=== PATIENT | female | born 1965 | race Caucasian/White ===

== ENCOUNTER → 2017-05-03 | Outpatient (CLI) | payer BC, OTHER ==
--- NOTE | 2017-05-03 16:19 | WOMENS IMAGING REPORT ---
EXAM DESCRIPTION: BILAT SCREENING MAMMO W/CAD COMPLETED DATE/TIME: 05/03/2017 1:33 pm REASON FOR STUDY: SCREENING MAMMO Z12.31 ENCNTR SCREEN MAMMOGRAM FOR MALIGNANT NEOPLASM OF SHIRLEY COMPARISON: Multiple since 2008 TECHNIQUE: Standard craniocaudal and mediolateral oblique views of each breast recorded using digita l acquisition. LIMITATIONS: None. FINDINGS: RIGHT BREAST MASSES: No suspicious masses. CALCIFICATIONS: No new or suspicious calcifications. Well cysts with adjacent dystrophic calcificati ons 6 o'clock position right breast lift in 2014 ARCHITECTURAL DISTORTION: None. DEVELOPING DENSITY: None. ASYMMETRY: None noted. OTHER: Postsurgical changes from breast reduction LEFT BREAST MASSES: No suspicious masses. CALCIFICATIONS: Indeterminate calcifications left lower outer quadrant. Diagnostic mammograms compre ssion magnification views and 90 mediolateral view recommended ARCHITECTURAL DISTORTION: None. DEVELOPING DENSITY: None. ASYMMETRY: None noted. OTHER: Postsurgical changes from breast lift in 2014 Read with the assistance of CAD. .[facility] - R2 Cenova Version 1.3 .[facility] Imaging - R2 Cenova Version 1.3 .[facility] Imaging - R2 Cenova Version 2.4 .[facility] [place] Cenova Version 2.4 .[facility] - R2 Door Furring Installer Version 9.2 IMPRESSION: No mammographic evidence for malignancy right breast. Indeterminate calcifications left breast for which diagnostic mammograms are recommended BREAST DENSITY: b. There are scattered areas of fibroglandular density. BIRAD: 0 Incomplete: Needs Additional Imaging Evaluation and/or prior Mammograms for Comparison. RECOMMENDATION: RECOMMENDED FOLLOW-UP: Left breast diagnostic mammograms for calcifications The patient will be contacted for additional imaging. COMMENT: The patient has been notified of the results by letter per SA requirements. Additional no tification policies are in place for contacting patient with suspicious or incomplete findings. Quality ID #[id number]: The [employer] recommends an annual screening mammogram for women aged 40 years or over. This facility utilizes a reminder system to ensure that all patients receive reminder letters, and/or direct phone calls for appointments. This includes reminders for routine scr eening mammograms, diagnostic mammograms, or other Breast Imaging Interventions when appropriate. Th is patient will be placed in the appropriate reminder system. The [employer] (ACR) has developed recommendations for screening MRI of the breast s in certain patient populations, to be used in conjunction with mammography. Breast MRI surveillanc e may be appropriate for women with more than 20% lifetime risk of developing breast cancer as deter mined by genetic testing, significant family history of the disease, or history of mantle radiation f or Hodgkins Disease. ACR Practice Guidelines 2008. TECHNICAL DOCUMENTATION: FINDING NUMBER: (1) ASSESSMENT: (1) JOB ID: [id number] [employer]- All Rights Reserved
== END ==
LOC: WI 12:56
PROVIDERS: ATTEND Advanced Practice Midwife
DX: Z12.31 Encounter for screening mammogram for malignant neoplasm of breast (principal); R92.0 Mammographic microcalcification found on diagnostic imaging of breast
CPT/HCPCS: 77067; G0202

== ENCOUNTER → 2017-05-11 | Outpatient (CLI) | payer BC, OTHER ==
--- NOTE | 2017-05-11 10:55 | WOMENS IMAGING REPORT ---
EXAM DESCRIPTION: LEFT DIAGNOSTIC MAMMO W/CAD COMPLETED DATE/TIME: 05/11/2017 10:19 am REASON FOR STUDY: CALCIFICATIONS; R92.2 R92.0 MAMMOGRAPHIC MICROCALCIFICATION FOUND ON DX IMAGING O F COMPARISON: 05/03/2017 and 05/01/2016. TECHNIQUE: Additional images include a true lateral image and magnification lateral and CC images. LIMITATIONS: None. FINDINGS: BREAST: left MASSES: No suspicious masses. CALCIFICATIONS: Calcifications in the inferolateral breast which are irregular in size and shape. ARCHITECTURAL DISTORTION: None. DEVELOPING DENSITY: None. ASYMMETRY: None noted. OTHER: No other significant findings. IMPRESSION: Calcifications in the inferolateral breast which have suspicious pleomorphic characteris tics. BREAST DENSITY: b. There are scattered areas of fibroglandular density. BIRAD: 4 Suspicious. Biopsy should be considered. RECOMMENDATION: RECOMMENDED FOLLOW UP: Birads 4: Biopsy should be performed in the absence of clinic al contraindication. SPECIFIC INTERVENTION/IMAGING/CONSULTATION RECOMMENDED:The suspicious finding(s) amenable to stereo-t actic-guided vacuum assisted core biopsy. COMMUNICATION:The imaging findings were discussed with the patient. Her referring provider has been n otified of the findings. COMMENT: The patient has been notified of the results by letter per SA requirements. Additional no tification policies are in place for contacting patient with suspicious or incomplete findings. Quality ID #[id number]: The [employer] recommends an annual screening mammogram for women aged 40 years or over. This facility utilizes a reminder system to ensure that all patients receive reminder letters, and/or direct phone calls for appointments. This includes reminders for routine scr eening mammograms, diagnostic mammograms, or other Breast Imaging Interventions when appropriate. Th is patient will be placed in the appropriate reminder system. The [employer] (ACR) has developed recommendations for screening MRI of the breast s in certain patient populations, to be used in conjunction with mammography. Breast MRI surveillanc e may be appropriate for women with more than 20% lifetime risk of developing breast cancer as deter mined by genetic testing, significant family history of the disease, or history of mantle radiation f or Hodgkins Disease. ACR Practice Guidelines 2008. TECHNICAL DOCUMENTATION: FINDING NUMBER: (1) ASSESSMENT: (1) JOB ID: [id number] [employer]- All Rights Reserved
== END ==
LOC: WI 10:46
PROVIDERS: ATTEND Advanced Practice Midwife
DX: R92.2 Inconclusive mammogram (principal)
CPT/HCPCS: G0206-52

== ENCOUNTER → 2017-05-27 | Day surgery (SDC) | payer BC, OTHER ==
[~2017-05-27] MED LIST: LIDOCAINE 2% INJ (20 MG/ML) 20 ML MDV ONE
--- NOTE | 2017-05-27 11:22 | OPERATIVE REPORT E ---
Operative Report NAME: JENNIE KRAMER : 1965 AGE: 51Y DATE OF SURGERY: 05/27/2017 ROOM: PREOPERATIVE DIAGNOSIS: New cluster of microcalcifications outer lower aspect left breast. POSTOPERATIVE DIAGNOSIS: New cluster of microcalcifications outer lower aspect left breast. PROCEDURES: 1. Stereotactically direct incision, mammotomy, core biopsy left breast microcalcifications. 2. Deployment of clip marker. 3. Interpretation of intraoperative mammography. SURGEON: ROMARIO KUMAR M.D. ANESTHESIA: 1% lidocaine plain. COMPLICATIONS: None. ESTIMATED BLOOD LOSS: 25 mL. DRAINS: None. TISSUE REMOVED OR ALTERED: Multiple cores left breast. SUMMARY OF PROCEDURE: Patient was brought from the outpatient radiology suite to the stereotactic procedure room where the left breast was placed to compression. Using an MLO approach, the *------* microcalcifications and the lower outer aspect of the left breast were localized. Stereotactic views were obtained. The microcalcifications were in a linear cluster, and very superficial. The surface of the left breast was exposed, and prepped with Betadine. Skin anesthetized with 1% lidocaine plain. A mammotomy was made with an 11-blade, and the mammotome advanced to the appropriate depth. Pre and post fire films showed good alignment between the mammotome and the microcalcifications. Again, the mammotome was barely in the breast parenchyma, but we did feel it was safe and suitable for biopsying. We obtained approximately 12 cores in 2 separate containers. Both containers were imaged and found to bear some microcalcifications. There was a mild amount of venous oozing during the procedure. A post biopsy cavity clip was deployed and a followup mammogram showed the clip to be in the biopsy cavity. At this point, we felt the operation was complete. The introducer sheath was removed from the patient's breast and compression applied. Final mammograms pending at time of dictation of the left breast. DICTATING PHYSICIAN: ROMARIO KUMAR M.D. [id number] PHY#: [id number] ID: [id number] JOB#: [id number] ACCT: [id number] cc:ROMARIO KUMAR M.D. >
== END ==
LOC: RAD 08:30
PROVIDERS: ATTEND Surgery
PROC: 0HBU3ZX Excision of Left Breast, Percutaneous Approach, Diagnostic (ICD-10-PCS; principal; 2017-05-27)
DX: R92.1 Mammographic calcification found on diagnostic imaging of breast (principal)
CPT/HCPCS: 88305 ×2; 88342; 19081; J3490; 76098

== ENCOUNTER → 2017-09-02 | Outpatient (CLI) | payer BC, OTHER ==
--- NOTE | 2017-09-07 17:38 | WOMENS IMAGING REPORT ---
EXAM DESCRIPTION: LEFT DIAGNOSTIC MAMMO W/CAD; U/S BREAST UNILAT LIMITED COMPLETED DATE/TIME: 09/02/2017 8:24 am; 09/02/2017 9:03 am REASON FOR STUDY: LEFT BREAST CALCIFICATION; LEFT BREAST; 3 MONTH FOLLOW-UP R92.0 MAMMOGRAPHIC MICR OCALCIFICATION FOUND ON DX IMAGING OF COMPARISON: Multiple previous mammograms from 2017 including specimen radiographs and stereotactic b iopsy images TECHNIQUE: Compression magnification craniocaudal and mediolateral oblique images of the breast carl rded with digital acquisition. Left breast 90 mediolateral, MLO and CC views. Left breast ultrasound was also performed. LIMITATIONS: None. FINDINGS: BREAST: Left MASSES: No suspicious masses. CALCIFICATIONS: Calcifications of concern in the left breast lower outer quadrant identified on mammo grams 05/11/2017 underwent biopsy on 05/27/2017. On today's study, a stereotactic clip is present with adjacent multiple small calcifications in the lower outer quadrant left breast, 6 cm from the nipple . Pathology report from 05/27/2017 stated no microcalcifications were identified. Rebiopsy this lesi on is recommended. This finding was discussed with Dr. Hayden. ARCHITECTURAL DISTORTION: None. DEVELOPING DENSITY: None. ASYMMETRY: None noted. OTHER: No other significant findings. Read with the assistance of CAD. .[facility] - R2 Cenova Version 1.3 .[facility] Imaging - R2 Cenova Version 1.3 .[facility] Imaging - R2 Cenova Version 2.4 .[facility] [place] R2 Cenova Version 2.4 .[facility] - R2 Fuller Brush Worker Version 9.2 Left breast ultrasound: Because the calcifications of concern in the left breast were fairly superficial, ultrasound of the l eft lower outer quadrant was performed. At the 4 o'clock position, there is a ill-defined hypoechoic area measuring 10 mm in size with shadowing calcifications and shadowing clip. This is likely the s ite of prior stereotactic biopsy. Because the calcifications and clip are identified easily at ultra sound, ultrasound-guided core biopsy and post biopsy clip placement with follow-up two-view mammogram is recommended. This finding was discussed with Dr. Hayden IMPRESSION: Short interval follow-up mammograms post inconclusive stereotactic biopsy. Calcificatio ns of concern are still present in the left breast lower outer quadrant with adjacent stereotactic cl ip. Because this area is visible with ultrasound, and stereotactic biopsy was challenging, a re-biop sy of this area under ultrasound guidance with follow-up two-view post biopsy mammograms is recommend ed. These findings were discussed with the surgeon. BREAST DENSITY: b. There are scattered areas of fibroglandular density. BIRAD: 4 Suspicious. Biopsy should be considered. RECOMMENDATION: RECOMMENDED FOLLOW UP: Ultrasound-guided core biopsy and post biopsy clip placement with follow-up two-view mammogram left breast lower outer quadrant lesion SPECIFIC INTERVENTION/IMAGING/CONSULTATION RECOMMENDED:As above COMMUNICATION:These findings were discussed with the surgeon COMMENT: The patient has been notified of the results by letter per SA requirements. Additional no tification policies are in place for contacting patient with suspicious or incomplete findings. Quality ID #[id number]: [employer] recommends an annual screening mammogram for women aged 40 years or over. This facility utilizes a reminder system to ensure that all patients receive reminder letters, and/or direct phone calls for appointments. This includes reminders for routine scr eening mammograms, diagnostic mammograms, or other Breast Imaging Interventions when appropriate. Th is patient will be placed in the appropriate reminder system. The [employer] (ACR) has developed recommendations for screening MRI of the breast s in certain patient populations, to be used in conjunction with mammography. Breast MRI surveillanc e may be appropriate for women with more than 20% lifetime risk of developing breast cancer as deter mined by genetic testing, significant family history of the disease, or history of mantle radiation f or Hodgkins Disease. ACR Practice Guidelines 2008. TECHNICAL DOCUMENTATION: FINDING NUMBER: (1) ASSESSMENT: (1) JOB ID: [id number] [employer]- All Rights Reserved
--- NOTE | 2017-09-07 17:38 | WOMENS IMAGING REPORT ---
EXAM DESCRIPTION: LEFT DIAGNOSTIC MAMMO W/CAD; U/S BREAST UNILAT LIMITED COMPLETED DATE/TIME: 09/02/2017 8:24 am; 09/02/2017 9:03 am REASON FOR STUDY: LEFT BREAST CALCIFICATION; LEFT BREAST; 3 MONTH FOLLOW-UP R92.0 MAMMOGRAPHIC MICR OCALCIFICATION FOUND ON DX IMAGING OF COMPARISON: Multiple previous mammograms from 2017 including specimen radiographs and stereotactic b iopsy images TECHNIQUE: Compression magnification craniocaudal and mediolateral oblique images of the breast carl rded with digital acquisition. Left breast 90 mediolateral, MLO and CC views. Left breast ultrasound was also performed. LIMITATIONS: None. FINDINGS: BREAST: Left MASSES: No suspicious masses. CALCIFICATIONS: Calcifications of concern in the left breast lower outer quadrant identified on mammo grams 05/11/2017 underwent biopsy on 05/27/2017. On today's study, a stereotactic clip is present with adjacent multiple small calcifications in the lower outer quadrant left breast, 6 cm from the nipple . Pathology report from 05/27/2017 stated no microcalcifications were identified. Rebiopsy this lesi on is recommended. This finding was discussed with Dr. Hayden. ARCHITECTURAL DISTORTION: None. DEVELOPING DENSITY: None. ASYMMETRY: None noted. OTHER: No other significant findings. Read with the assistance of CAD. .[facility] - R2 Cenova Version 1.3 .[facility] Imaging - R2 Cenova Version 1.3 .[facility] Imaging - R2 Cenova Version 2.4 .[facility] [place] R2 Cenova Version 2.4 .[facility] - R2 Spring Tester Version 9.2 Left breast ultrasound: Because the calcifications of concern in the left breast were fairly superficial, ultrasound of the l eft lower outer quadrant was performed. At the 4 o'clock position, there is a ill-defined hypoechoic area measuring 10 mm in size with shadowing calcifications and shadowing clip. This is likely the s ite of prior stereotactic biopsy. Because the calcifications and clip are identified easily at ultra sound, ultrasound-guided core biopsy and post biopsy clip placement with follow-up two-view mammogram is recommended. This finding was discussed with Dr. Hayden IMPRESSION: Short interval follow-up mammograms post inconclusive stereotactic biopsy. Calcificatio ns of concern are still present in the left breast lower outer quadrant with adjacent stereotactic cl ip. Because this area is visible with ultrasound, and stereotactic biopsy was challenging, a re-biop sy of this area under ultrasound guidance with follow-up two-view post biopsy mammograms is recommend ed. These findings were discussed with the surgeon. BREAST DENSITY: b. There are scattered areas of fibroglandular density. BIRAD: 4 Suspicious. Biopsy should be considered. RECOMMENDATION: RECOMMENDED FOLLOW UP: Ultrasound-guided core biopsy and post biopsy clip placement with follow-up two-view mammogram left breast lower outer quadrant lesion SPECIFIC INTERVENTION/IMAGING/CONSULTATION RECOMMENDED:As above COMMUNICATION:These findings were discussed with the surgeon COMMENT: The patient has been notified of the results by letter per SA requirements. Additional no tification policies are in place for contacting patient with suspicious or incomplete findings. Quality ID #[id number]: The [employer] recommends an annual screening mammogram for women aged 40 years or over. This facility utilizes a reminder system to ensure that all patients receive reminder letters, and/or direct phone calls for appointments. This includes reminders for routine scr eening mammograms, diagnostic mammograms, or other Breast Imaging Interventions when appropriate. Th is patient will be placed in the appropriate reminder system. The [employer] (ACR) has developed recommendations for screening MRI of the breast s in certain patient populations, to be used in conjunction with mammography. Breast MRI surveillanc e may be appropriate for women with more than 20% lifetime risk of developing breast cancer as deter mined by genetic testing, significant family history of the disease, or history of mantle radiation f or Hodgkins Disease. ACR Practice Guidelines 2008. TECHNICAL DOCUMENTATION: FINDING NUMBER: (1) ASSESSMENT: (1) JOB ID: [id number] [employer]- All Rights Reserved
== END ==
LOC: WI 07:44
PROVIDERS: ATTEND Surgery
DX: R92.0 Mammographic microcalcification found on diagnostic imaging of breast (principal)
CPT/HCPCS: 76642

== ENCOUNTER → 2017-09-20 | Day surgery (SDC) | payer BC, OTHER ==
--- NOTE | 2017-09-28 08:40 | WOMENS IMAGING REPORT ---
EXAM DESCRIPTION: U/S BREAST BX; LEFT DIG DX MAMMO NO CHG COMPLETED DATE/TIME: 09/20/2017 11:04 am; 09/20/2017 11:00 am REASON FOR STUDY: LEFT BREAST CALCIFICATION; R92.0 LEFT S/P US BX FOR CLIP PLACEMENT R92.0 MAMMOGRA PHIC MICROCALCIFICATION FOUND ON DX IMAGING OF COMPARISON: None. TECHNIQUE: The procedure was discussed with the patient and the patient agreed to proceed. The patient was scanned and the area of interest in the 4-5 o'clock position 5.5 cm from the nipple o f the left breast was localized. This correlates with the area of concern on prior imaging studies. This area was targeted for ultrasound-guided core biopsy. After sterile skin prep and 2 mL local lidocaine 1% for skin and deep tissue anesthesia, a 14 gauge c ore biopsy needle was used to obtain several cores of tissue from the lesion. Under ultrasound declan nce, a ribbon clip was placed in the areas sampled. There were no immediate post-procedure complicat ions. MAMMOGRAM: Post-procedure two view mammogram was acquired in the digital mammogram suite. The clip wa s in the expected location. No significant hematoma. Pathology yields a diagnosis of benign fibrosis. Pathology is concordant. LIMITATIONS: None. FINDINGS: Ultrasound guided breast biopsy as described above. POST PROCEDURE MAMMOGRAMS FOR MARKER PLACEMENT: Yes IMPRESSION: ULTRASOUND-GUIDED CORE BIOPSY OF THE LEFT BREAST YIELDS A DIAGNOSIS OF BENIGN FIBROSIS. COMMENT: COMMUNICATION: The patient's provider has been notified of the findings. The provider will discuss the findings with the patient. Patient medication list reviewed: Yes- Quality ID# [id number]:Eligible professional attests to documenting i n the medical record they obtained, updated, or reviewed the patient's current medications. TECHNICAL DOCUMENTATION: JOB ID: [id number] [employer]- All Rights Reserved
== END ==
LOC: WI 09:31
PROVIDERS: ATTEND Surgery
DX: R92.0 Mammographic microcalcification found on diagnostic imaging of breast (principal); N60.32 Fibrosclerosis of left breast
CPT/HCPCS: 88342 ×2; 88305 ×2; 19083; J3490

== ENCOUNTER → 2017-12-21 | Outpatient (CLI) | payer BC, OTHER ==
--- NOTE | 2017-12-23 22:03 | WOMENS IMAGING REPORT ---
EXAM DESCRIPTION: LEFT DIAGNOSTIC MAMMO W/CAD COMPLETED DATE/TIME: 12/21/2017 8:42 am REASON FOR STUDY: MICROCALCIFICATIONS R92.0 MAMMOGRAPHIC MICROCALCIFICATION FOUND ON DX IMAGING OF COMPARISON: Multiple since 2008 TECHNIQUE: Standard craniocaudal, 90 mediolateral and mediolateral oblique images of the breast rec orded with digital acquisition. Additional left breast compression magnification views in the CC and 90 mediolateral orientations LIMITATIONS: None. FINDINGS: BREAST: Left MASSES: No suspicious masses. CALCIFICATIONS: In the lower outer quadrant, there are a group of dense breast parenchymal calcificat ions with adjacent stereotactic biopsy and ultrasound biopsy clips. Prior biopsy yielded a benign di agnosis of benign fibrosis. Patient has had post reduction surgery. These are likely dystrophic jocelyn cifications in scar tissue. ARCHITECTURAL DISTORTION: None. DEVELOPING DENSITY: None. ASYMMETRY: None noted. OTHER: No other significant findings. Read with the assistance of CAD. .[facility] - R2 Cenova Version 1.3 .[facility] Imaging - R2 Cenova Version 1.3 .[facility] - R2 Cenova Version 2.4 .[facility] [place] - R2 Cenova Version 2.4 .[facility] - R2 Customer Experience Professional Version 9.2 IMPRESSION: Probably benign calcifications left breast. Six-month follow-up left breast mammograms with right breast screening mammograms recommended in June 2018. BREAST DENSITY: c. The breasts are heterogeneously dense, which may obscure small masses. BIRAD: 3 Probably benign finding. Initial short-interval follow-up suggested. RECOMMENDATION: RECOMMENDED FOLLOW UP: Right breast screening left breast diagnostic mammograms in 2017 SPECIFIC INTERVENTION/IMAGING/CONSULTATION RECOMMENDED:No additional intervention/ imaging/consultati on needed at this time. COMMUNICATION:The negative/benign results were communicated to the patient. COMMENT: The patient has been notified of the results by letter per SA requirements. Additional no tification policies are in place for contacting patient with suspicious or incomplete findings. Quality ID #[id number]: The [employer] recommends an annual screening mammogram for women aged 40 years or over. This facility utilizes a reminder system to ensure that all patients receive reminder letters, and/or direct phone calls for appointments. This includes reminders for routine scr eening mammograms, diagnostic mammograms, or other Breast Imaging Interventions when appropriate. Th is patient will be placed in the appropriate reminder system. The [employer] (ACR) has developed recommendations for screening MRI of the breast s in certain patient populations, to be used in conjunction with mammography. Breast MRI surveillanc e may be appropriate for women with more than 20% lifetime risk of developing breast cancer as deter mined by genetic testing, significant family history of the disease, or history of mantle radiation f or Hodgkins Disease. ACR Practice Guidelines 2008. TECHNICAL DOCUMENTATION: FINDING NUMBER: (1) ASSESSMENT: (1) JOB ID: [id number] [employer] All Rights Reserved Reading location - IP/workstation name: [email or web address]
== END ==
LOC: WC 07:46
PROVIDERS: ATTEND Surgery
DX: R92.0 Mammographic microcalcification found on diagnostic imaging of breast (principal)

== ENCOUNTER → 2018-06-07 | Outpatient (CLI) | payer BC, OTHER ==
--- NOTE | 2018-06-07 10:52 | WOMENS IMAGING REPORT ---
EXAM DESCRIPTION: 3D DX MAMMO BILAT COMPLETED DATE/TIME: 06/07/2018 8:59 am REASON FOR STUDY: MICROCALCIFICATIONS R92.0 MAMMOGRAPHIC MICROCALCIFICATION FOUND ON DX IMAGING OF COMPARISON: Multiple since 2008 TECHNIQUE: Standard craniocaudal and mediolateral oblique views of each breast recorded using digita l acquisition and breast tomosynthesis. Additional left breast 90 mediolateral view, compression magnification views left breast in the mL a nd CC orientations. LIMITATIONS: None. FINDINGS: RIGHT BREAST MASSES: No suspicious masses. CALCIFICATIONS: No new or suspicious calcifications. ARCHITECTURAL DISTORTION: None. DEVELOPING DENSITY: None. ASYMMETRY: None noted. OTHER: Postsurgical changes from breast lift in 2014. LEFT BREAST MASSES: No suspicious masses. CALCIFICATIONS: No new or suspicious calcifications. Benign-appearing coarse dense calcifications le ft breast 6 o'clock position with adjacent biopsy clips. ARCHITECTURAL DISTORTION: None. DEVELOPING DENSITY: None. ASYMMETRY: None noted. OTHER: Postsurgical changes from breast left in 2014. Read with the assistance of CAD: .[facility] - R2 [employer] Version 1.3 .[facility] - R2 Cenova Version 1.3 .[facility] - R2 Cenova Version 2.4 .[facility] [place] R2 C[employer]ova Version 2.4 .[facility] - R2 [employer] Version 9.2 IMPRESSION: Benign breast parenchymal calcifications bilaterally. Postsurgical changes from bilateral breast lift in 2014 BREAST DENSITY: b. There are scattered areas of fibroglandular density. BIRAD: 2 Benign findings. RECOMMENDATION: RECOMMENDED FOLLOW UP: Please continue yearly bilateral screening tomosynthesis in O ctober 2019 SPECIFIC INTERVENTION/IMAGING/CONSULTATION RECOMMENDED:No additional intervention/ imaging/consultati on needed at this time. COMMUNICATION:The negative/benign results were communicated to the patient. COMMENT: The patient has been notified of the results by letter per SA requirements. Additional no tification policies are in place for contacting patient with suspicious or incomplete findings. Quality ID #225: The [employer] recommends an annual screening mammogram for women aged 40 years or over. This facility utilizes a reminder system to ensure that all patients receive reminder letters, and/or direct phone calls for appointments. This includes reminders for routine scr eening mammograms, diagnostic mammograms, or other Breast Imaging Interventions when appropriate. Th is patient will be placed in the appropriate reminder system. The [employer] (ACR) has developed recommendations for screening MRI of the breast s in certain patient populations, to be used in conjunction with mammography. Breast MRI surveillanc e may be appropriate for women with more than 20% lifetime risk of developing breast cancer as deter mined by genetic testing, significant family history of the disease, or history of mantle radiation f or Hodgkins Disease. ACR Practice Guidelines 2008. DBT Technology DBT is a type of tomographic mammography. With conventional mammography, overlapping breast tissue ma y make lesions difficult to detect, even with good compression. DBT uses an x-ray tube that rotates a round the breast, taking images at different angles. These images are then combined to create thin sl ices of the breast that the radiologist can view as a 3D reconstruction. The Mophie unit can perform full-field digital mammograms (2D imaging); or DBT (3D imaging); or both, in a combination mode that quickly performs both the mammogram and the tomosynthesis scan while the breast is still compressed. PQRS 6045F: Fluoroscopic imaging is not utilized for breast tomosynthesis. TECHNICAL DOCUMENTATION: FINDING NUMBER: (1) ASSESSMENT: (1) JOB ID: [id number] [employer]- All Rights Reserved Reading location - IP/workstation name: [email or web address]
== END ==
LOC: WI 08:23
PROVIDERS: ATTEND Surgery
DX: R92.0 Mammographic microcalcification found on diagnostic imaging of breast (principal)
CPT/HCPCS: 77066; G0279; 77062

== ENCOUNTER → 2019-06-09 | Outpatient (CLI) | payer BC, OTHER ==
--- NOTE | 2019-06-09 16:00 | WOMENS IMAGING REPORT ---
EXAM DESCRIPTION: BILAT SCREENING MAMMO W/CAD COMPLETED DATE/TIME: 06/09/2019 1:21 pm REASON FOR STUDY: Z12.31 SCREENING MAMMMO Z12.31 ENCNTR SCREEN MAMMOGRAM FOR MALIGNANT NEOPLASM OF SHIRLEY COMPARISON: 06/07/2018, 05/03/2017, and 05/01/2016. EXAM PARAMETERS: Standard craniocaudal and mediolateral oblique views of each breast recorded using digital acquisition. Read with the assistance of CAD. .[facility] - R2 [employer] Version 9.2 LIMITATIONS: None. FINDINGS: Findings present which are benign by mammographic criteria. No suspicious masses, calcifi cations or architectural distortion. Pertinent benign findings: Stable surgical changes and calcifications. Benign mammographic findings may include one or more of the following: Smooth masses, popcorn/rim/co arse calcifications, asymmetries, post-procedure changes, and lesions with long-standing stability. IMPRESSION: BENIGN MAMMOGRAPHIC FINDINGS. BIRADS 2 BREAST DENSITY: b. There are scattered areas of fibroglandular density. BIRAD: ASSESSMENT: 2 BENIGN FINDING(S) RECOMMENDATION: ROUTINE SCREENING COMMENT: The patient has been notified of the results by letter per SA requirements. Additional no tification policies are in place for contacting patient with suspicious or incomplete findings. Quality ID #225: The [employer] recommends an annual screening mammogram for women aged 40 years or over. This facility utilizes a reminder system to ensure that all patients receive reminder letters, and/or direct phone calls for appointments. This includes reminders for routine scr eening mammograms, diagnostic mammograms, or other Breast Imaging Interventions when appropriate. Th is patient will be placed in the appropriate reminder system. TECHNICAL DOCUMENTATION: FINDING NUMBER: (1) ASSESSMENT: (1) JOB ID: [id number] [employer]- All Rights Reserved Reading location - IP/workstation name: [email or web address]
== END ==
LOC: WI 12:55
PROVIDERS: ATTEND Advanced Practice Midwife
DX: Z12.31 Encounter for screening mammogram for malignant neoplasm of breast (principal)
CPT/HCPCS: 77067

== ENCOUNTER → 2020-06-12 | Outpatient (CLI) | payer BC, OTHER ==
--- NOTE | 2020-06-13 13:50 | WOMENS IMAGING REPORT ---
EXAM DESCRIPTION: 3D SCREENING MAMMO BILAT IMAGES COMPLETED DATE/TIME: 06/12/2020 7:51 am REASON FOR STUDY: Z12.31 ENCNTR SCREEN MAMMOGRAM FOR MALIGNANT NEOPLASM OF BREAST Z12.31 ENCNTR SCR EEN MAMMOGRAM FOR MALIGNANT NEOPLASM OF SHIRLEY COMPARISON: Multiple since 2010 EXAM PARAMETERS: Standard craniocaudal and mediolateral oblique views of each breast recorded using digital acquisition and breast tomosynthesis. Read with the assistance of CAD. .[facility] - [employer] Version 9.2 LIMITATIONS: None. FINDINGS: Findings present which are benign by mammographic criteria. No suspicious masses, calcific ations or architectural distortion. Pertinent benign findings: Biopsy clips lateral left breast. Benign bilateral calcifications. Posto perative change from bilateral breast reduction. Benign mammographic findings may include one or more of the following: Smooth masses, popcorn/rim/coa rse calcifications, asymmetries, post-procedure changes, and lesions with long-standing stability. IMPRESSION: BENIGN MAMMOGRAPHIC FINDINGS. BIRADS 2 BREAST DENSITY: b. There are scattered areas of fibroglandular density. BIRAD: ASSESSMENT: 2 BENIGN FINDING(S) RECOMMENDATION: ROUTINE SCREENING Please continue yearly bilateral screening mammography/tomosynthesis in May 2021 COMMENT: The patient has been notified of the results by letter per SA requirements. Additional no tification policies are in place for contacting patient with suspicious or incomplete findings. Quality ID #[id number]: The [employer] recommends an annual screening mammogram for women aged 40 years or over. This facility utilizes a reminder system to ensure that all patients receive reminder letters, and/or direct phone calls for appointments. This includes reminders for routine scr eening mammograms, diagnostic mammograms, or other Breast Imaging Interventions when appropriate. Th is patient will be placed in the appropriate reminder system. TECHNICAL DOCUMENTATION: FINDING NUMBER: (1) ASSESSMENT: (1) JOB ID: [id number] [employer]- All Rights Reserved Reading location - IP/workstation name: [email or web address]
== END ==
LOC: WI 07:30
PROVIDERS: ATTEND Advanced Practice Midwife
DX: Z12.31 Encounter for screening mammogram for malignant neoplasm of breast (principal)
CPT/HCPCS: 77063; 77067